=== PATIENT | male | born 1970 | race Asian ===

== ENCOUNTER 2022-11-06 00:09 | Emergency (ER) | payer OTHER, SELFPAY ==
--- NOTE | ~2022-11-06 | US_ITS ---
EXAMINATION: US VENOUS ULTRASOUND WITH DOPPLER LOWER EXTREMITY, BILATERAL CLINICAL INFORMATION: Bilateral lower extremity swelling and pain COMPARISON: None TECHNIQUE: Ultrasound of the deep veins is performed from the hip to the calf with compression sonography and color and pulse Doppler assessment. Spectral analysis with color-flow imaging is performed. FINDINGS: RIGHT: There is normal venous compression and respiratory variation and augmented flow. The visualized common femoral vein, superficial femoral vein, profunda femoral vein, popliteal vein, and the trifurcation region shows no evidence of deep venous thrombosis. There is no significant popliteal fossa cyst. There are multiple 2 cm and less lymph nodes right groin LEFT: There is normal venous compression and respiratory variation and augmented flow. The visualized common femoral vein, superficial femoral vein, profunda femoral vein, popliteal vein, and the trifurcation region shows no evidence of deep venous thrombosis. There is no significant popliteal fossa cyst. There are multiple lymph nodes left groin measuring 2.5 cm. The largest lymph node in maximum length measures 2.5 cm.. US/US venous duplex LE BI IMPRESSION: No DVT demonstrated in the bilateral lower extremity. Bilateral groin lymph nodes. Recommend clinical correlation.
[2022-11-06 00:18] VITALS: BP 132/78; PULSE 80; RESP 20; TEMP 36.9; O2SAT 100; BMI 20.7
[2022-11-06 02:02] LABS: MANUAL DIFF FLAG NO
[2022-11-06 02:03] LABS: Basophils Percent Auto 0.4 % (0-2); Eosinophils Absolute Auto 0.6 X10*3/uL (0.0-0.4); Hematocrit 39.8 % (42.0-52.0); Hemoglobin 12.9 g/dl (14.0-18.0); Imm Gran Abs Auto 0.03 X10*3/uL (0.00-0.03); Imm Gran Pct Auto 0.3 % (0.0-0.4); Lymphocytes Percent Auto 19.2 % (20-40); Mean Corpuscular HGB Conc 32.4 g/dl (31.0-36.0); Mean Corpuscular Hemoglobin 29.5 pg (27.0-33.0); Mean Corpuscular Volume 90.9 fL (80.0-98.0); Mean Platelet Volume 8.9 fL (9.4-12.4); Monocytes Absolute Auto 1.1 X10*3/uL (0.1-1.2); Monocytes Percent Auto 10.4 % (2-11); Neutrophils Absolute Auto 6.7 x10*3/uL (2.0-8.3); Neutrophils Percent Auto 63.7 % (45-73); Platelet Count 226 X10*3/uL (160-400); Red Blood Count 4.38 X10*6/uL (4.60-5.80); Red Cell Distribution Width 13.6 % (11.0-16.0); White Blood Count 10.5 X10*3/uL (4.8-10.8)
[2022-11-06 02:09] LABS: D Dimer High Sensitivity 746 NG/ML
[2022-11-06 02:20] LABS: Anion Gap 10 (12-20); Blood Urea Nitrogen 17 mg/dL (9-16); Calcium 9.1 mg/dL (8.4-10.2); Carbon Dioxide 28 mmol/L (22-29); Chloride 106 mmol/L (96-108); Creatinine Clr Calc Pharmacy 83.6; Estimated Glomerular Filt Rate > 60; Glucose Random 107 mg/dL (60-115); Potassium 4.3 mmol/L (3.3-5.1); Sodium 140 mmol/L (135-145)
--- NOTE | 2022-11-06 03:52 | ED.GENADULT ---
HPI - General Adult General Chief complaint: General Medical Stated complaint: Bilateral leg swelling Time Seen by Provider: 11/06/22 03:38 Source: patient Mode of arrival: ambulatory Limitations: no limitations History of Present Illness HPI narrative: 52-year-old male otherwise healthy presented for evaluation of bilateral lower extremity swelling. About 10 days ago patient was diagnosed with hives that required hydroxyzine and prednisone prescribed by PCP patient is here today for evaluation of bilateral lower extremity swelling, no recent travel, no recent prolonged immobilization. Patient is known to be healthy with no renal or hepatic problems no alcohol drinking issue. Patient is scheduled to see mid level java developer in a few weeks to check on his hives. Related Data Allergies Allergy/AdvReac Type Severity Reaction Status Date / Time No Known Allergies Allergy Verified 11/06/22 00:23 Review of Systems Review of Systems: All other systems are reviewed and are negative Constitutional: Reports as per HPI and Reports no additional constitutional complaints Eyes: Reports as per HPI and Reports no additional eye complaints Reports system reviewed and no additional complaints, except as documented Cardiovascular: Reports as per HPI and Reports no additional cardiovascular complaints Respiratory: Reports as per HPI and Reports no additional respiratory complaints Gastrointestinal: Reports as per HPI and Reports no additional gastrointestinal complaints Genitourinary: Reports no additional female genitourinary complaints Musculoskeletal: Reports no additional musculoskeletal complaints Skin/Breast: Reports system reviewed and no additional complaints, except as docu Psychiatric: Reports no additional psychiatric complaints Endocrine: Reports no additional endocrine complaints Hematologic/Lymphatic: Reports no additional hematologic/lymphatic complaints Allergic/Immunologic: Reports no additional allergic/immunologic complaints Reports system reviewed and no additional complaints, except as documented and Reports Abnormal speech present [facility] Social History Social History Advance Directives: No Advance Directives Information Provided: No Physical Exam ED Vital Signs: Vital Signs - 24 hr 11/06/22 00:18 11/06/22 04:21 Temperature 98.5 F 98.7 F Pulse Rate 80 82 Respiratory Rate 20 18 Blood Pressure 132/78 135/76 Pulse Oximetry 100 99 Oxygen Delivery Method Room Air Room Air BMI result Body Mass Index 20.7 Vital signs have been reviewed as appeared to be correct. Blood pressure normal. Heart rate normal. Respiration rate normal. Temperature normal. Oxygen saturation normal. Appearance: Alert. Oriented X3. No acute distress. Head: Normal external exam. Normocephalic. Atraumatic. No Evans signs noted. No raccoon eyes noted Eyes: PERRLA. EOMI. Conjunctiva and sclera normal. Eyelids normal. ENT: TM's Normal. Pharynx normal. Uvula midline. Moist mucous membranes. No trismus noted. No drooling noted. No muffled voice noted. Neck: Normal inspection. Neck supple. FROM. No adenopathy. Thyroid Normal. No meningeal signs. No neck mass noted. CVS: Normal heart rate and rhythm. Heart sound normal. No murmurs noted. Pulses normal throughout. Respiratory: No respiratory distress. Painless inspiration. Breath sounds normal. No wheezes/rales/rhonchi noted. Chest nontender. No accessory muscle usage noted or decreased air movement noted. Abdomen: Soft and nontender. Bowel sounds normal in all 4 quadrants. No distention noted. No organomegaly noted. No visible injury noted. Back: No CVA tenderness. Full range of motion noted. Skin: Skin warm and dry. Normal skin color. Normal skin turgor. No rashes/lesions/lacerations noted. Extremities: +2 lower extremity edema. Extremities exhibit normal range of motion. Extremities nontender. Neuro: Oriented X 3. Cranial nerve exam: II-XII are grossly intact No motor deficit. No sensory deficit. Reflexes normal. Course Course Course Narrative: 52-year-old male otherwise healthy came in for evaluation of bilateral lower extremity swelling, elevated D-dimer, await for bilateral lower extremities ultrasound rule out DVT the case was signed out to Dr. Rao to follow-up on ultrasound and dispo accordingly. Medical Decision Making Differential Diagnosis Differential Diagnoses: The differential diagnosis associated with the presentation includes (Liver disease, renal disease, DVT, medication side effect.) Lab Data MDM Lab Attestation statement: I reviewed the patient's lab results. Result Diagrams: 11/06/22 01:56 11/06/22 01:56 Labs: Lab Results 11/06/22 11/06/22 11/06/22 Range/Units 01:56 01:56 01:56 WBC 10.5 (4.8-10.8) X10*3/uL RBC 4.38 L (4.60-5.80) X10*6/uL Hgb 12.9 L (14.0-18.0) g/dl Hct 39.8 L (42.0-52.0) % MCV 90.9 (80.0-98.0) fL MCH 29.5 (27.0-33.0) pg MCHC 32.4 (31.0-36.0) g/dl RDW 13.6 (11.0-16.0) % Plt Count 226 (160-400) X10*3/uL MPV 8.9 L (9.4-12.4) fL Immature Gran % (Auto) 0.3 (0.0-0.4) % Neut % (Auto) 63.7 (45-73) % Lymph % (Auto) 19.2 L (20-40) % Mesa % (Auto) 10.4 (2-11) % Eos % (Auto) 6.0 H (0-4) % Baso % (Auto) 0.4 (0-2) % Lymph # (Auto) 2.0 (1.2-4.9) X10*3/uL Mesa # (Auto) 1.1 (0.1-1.2) X10*3/uL Eos # (Auto) 0.6 H (0.0-0.4) X10*3/uL Baso # (Auto) 0.0 (0.0-0.2) X10*3/uL Abs Immat Gran (auto) 0.03 (0.00-0.03) X10*3/uL Absolute Neuts (auto) 6.7 (2.0-8.3) x10*3/uL Absolute Nucleated RBC 0.000 (0.0-0.012) X10*3/uL Nucleated RBC % (auto) 0.0 (0.0-0.2) /100WBC D-Dimer High Sensitivty 746 NG/ML Sodium 140 (135-145) mmol/L Potassium 4.3 (3.3-5.1) mmol/L Chloride 106 (96-108) mmol/L Carbon Dioxide 28 (22-29) mmol/L Anion Gap 10 L (12-20) BUN 17 H (9-16) mg/dL Creatinine 0.95 (0.5-1.4) mg/dL Estim Creat Clear Calc 83.6 Estimated GFR > 60 Random Glucose 107 (60-115) mg/dL Calcium 9.1 (8.4-10.2) mg/dL Total Bilirubin 0.5 (0.0-1.0) mg/dL Direct Bilirubin 0.2 (0.0-0.5) mg/dL AST 27 (5-37) U/L ALT 35 (0-40) U/L Alkaline Phosphatase 64 (39-117) U/L B-Natriuretic Peptide (<100) pg/mL Total Protein 6.8 (6.5-8.0) g/dL Albumin 3.9 (3.5-5.0) g/dL 11/06/22 Range/Units 01:56 WBC (4.8-10.8) X10*3/uL RBC (4.60-5.80) X10*6/uL Hgb (14.0-18.0) g/dl Hct (42.0-52.0) % MCV (80.0-98.0) fL MCH (27.0-33.0) pg MCHC (31.0-36.0) g/dl RDW (11.0-16.0) % Plt Count (160-400) X10*3/uL MPV (9.4-12.4) fL Immature Gran % (Auto) (0.0-0.4) % Neut % (Auto) (45-73) % Lymph % (Auto) (20-40) % Mesa % (Auto) (2-11) % Eos % (Auto) (0-4) % Baso % (Auto) (0-2) % Lymph # (Auto) (1.2-4.9) X10*3/uL Mesa # (Auto) (0.1-1.2) X10*3/uL Eos # (Auto) (0.0-0.4) X10*3/uL Baso # (Auto) (0.0-0.2) X10*3/uL Abs Immat Gran (auto) (0.00-0.03) X10*3/uL Absolute Neuts (auto) (2.0-8.3) x10*3/uL Absolute Nucleated RBC (0.0-0.012) X10*3/uL Nucleated RBC % (auto) (0.0-0.2) /100WBC D-Dimer High Sensitivty NG/ML Sodium (135-145) mmol/L Potassium (3.3-5.1) mmol/L Chloride (96-108) mmol/L Carbon Dioxide (22-29) mmol/L Anion Gap (12-20) BUN (9-16) mg/dL Creatinine (0.5-1.4) mg/dL Estim Creat Clear Calc Estimated GFR Random Glucose (60-115) mg/dL Calcium (8.4-10.2) mg/dL Total Bilirubin (0.0-1.0) mg/dL Direct Bilirubin (0.0-0.5) mg/dL AST (5-37) U/L ALT (0-40) U/L Alkaline Phosphatase (39-117) U/L B-Natriuretic Peptide 29 (<100) pg/mL Total Protein (6.5-8.0) g/dL Albumin (3.5-5.0) g/dL Discharge Plan Discharge Clinical Impression: Bilateral leg edema Patient Disposition: Still a Patient
[2022-11-06 03:58] LABS: Alanine Aminotransferase 35 U/L (0-40); Albumin Level 3.9 g/dL (3.5-5.0); Alkaline Phosphatase 64 U/L (39-117); Aspartate Amino Transferase 27 U/L (5-37); Bilirubin Direct 0.2 mg/dL (0.0-0.5); Bilirubin Total 0.5 mg/dL (0.0-1.0); Total Protein 6.8 g/dL (6.5-8.0)
[2022-11-06 04:08] LABS: B Type Natriuretic Peptide 29 pg/mL (<100)
[2022-11-06 04:21] VITALS: BP 135/76; PULSE 82; RESP 18; TEMP 37.1; O2SAT 99
--- NOTE | 2022-11-06 04:39 | PC.NURSE ---
Pt. sleeping, under no apparent distress. Respirations are even and unlabored. Will continue to monitor.
[2022-11-06 06:07] VITALS: BP 132/75; PULSE 80; RESP 18; O2SAT 100
[2022-11-06 07:38] VITALS: BP 119/65; PULSE 87; RESP 16; TEMP 36.7; O2SAT 97
--- NOTE | 2022-11-06 09:10 | PC.NURSE ---
Patient resting comfortably no distress noted edema non pitting to BLE with rash peeling skin noted. AOx 4 mentating speaks in clear voice with no slurring of words awaiting disposition will CTM
== END 2022-11-06 10:17 | disposition home or self-care (01) ==
PROVIDERS: Emergency Medicine; Emergency Provider Student in an Organized Health Care Education/Training Program
DX: R60.0 Localized edema (principal); R06.02 Shortness of breath; Z79.899 Other long term (current) drug therapy
CPT/HCPCS: 36415; 80048; 80076; 83880; 85025; 85379; 93970; 99283; 99284

== ENCOUNTER 2024-01-06 09:22 | Emergency (ER) | payer OTHER, SELFPAY ==
--- NOTE | ~2024-01-06 | XR_ITS ---
EXAMINATION: 1. RADIOGRAPHS RIGHT ANKLE 2. RADIOGRAPHS RIGHT FOOT 3. RADIOGRAPHS LEFT FOOT CLINICAL INFORMATION: Bilateral foot pain COMPARISON: None available TECHNIQUE: 3 views of the right ankle, 3 views of the right foot and 3 views of the left foot were obtained. FINDINGS: Right ankle/foot: Visualized portion of the distal right tibia and fibula demonstrate no fracture. Ankle mortise is maintained. Mild soft tissue swelling along the medial ankle. No gross ankle joint effusion. Bones of the midfoot are well aligned. No tarsal, metatarsal or phalangeal fracture. 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 Minimal degenerative changes of the first MTP joint and scattered IP joints. No localized soft tissue swelling of the right foot. Left foot: Bones of the midfoot are well aligned. No tarsal, metatarsal or phalangeal fracture. Minimal degenerative changes of the first MTP joint and scattered IP joints. No localized soft tissue swelling. No radiopaque foreign body. XR/XR foot RT 2V IMPRESSION: 1. Minimal degenerative changes of both feet. No fracture. 2. Mild soft tissue swelling along the medial aspect of the right ankle.
--- NOTE | ~2024-01-06 | XR_ITS ---
EXAMINATION: 1. RADIOGRAPHS RIGHT ANKLE 2. RADIOGRAPHS RIGHT FOOT 3. RADIOGRAPHS LEFT FOOT CLINICAL INFORMATION: Bilateral foot pain COMPARISON: None available TECHNIQUE: 3 views of the right ankle, 3 views of the right foot and 3 views of the left foot were obtained. FINDINGS: Right ankle/foot: Visualized portion of the distal right tibia and fibula demonstrate no fracture. Ankle mortise is maintained. Mild soft tissue swelling along the medial ankle. No gross ankle joint effusion. Bones of the midfoot are well aligned. No tarsal, metatarsal or phalangeal fracture. 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 Minimal degenerative changes of the first MTP joint and scattered IP joints. No localized soft tissue swelling of the right foot. Left foot: Bones of the midfoot are well aligned. No tarsal, metatarsal or phalangeal fracture. Minimal degenerative changes of the first MTP joint and scattered IP joints. No localized soft tissue swelling. No radiopaque foreign body. XR/XR ankle RT 2V IMPRESSION: 1. Minimal degenerative changes of both feet. No fracture. 2. Mild soft tissue swelling along the medial aspect of the right ankle.
--- NOTE | ~2024-01-06 | XR_ITS ---
EXAMINATION: 1. RADIOGRAPHS RIGHT ANKLE 2. RADIOGRAPHS RIGHT FOOT 3. RADIOGRAPHS LEFT FOOT CLINICAL INFORMATION: Bilateral foot pain COMPARISON: None available TECHNIQUE: 3 views of the right ankle, 3 views of the right foot and 3 views of the left foot were obtained. FINDINGS: Right ankle/foot: Visualized portion of the distal right tibia and fibula demonstrate no fracture. Ankle mortise is maintained. Mild soft tissue swelling along the medial ankle. No gross ankle joint effusion. Bones of the midfoot are well aligned. No tarsal, metatarsal or phalangeal fracture. 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 Minimal degenerative changes of the first MTP joint and scattered IP joints. No localized soft tissue swelling of the right foot. Left foot: Bones of the midfoot are well aligned. No tarsal, metatarsal or phalangeal fracture. Minimal degenerative changes of the first MTP joint and scattered IP joints. No localized soft tissue swelling. No radiopaque foreign body. XR/XR foot LT 2V IMPRESSION: 1. Minimal degenerative changes of both feet. No fracture. 2. Mild soft tissue swelling along the medial aspect of the right ankle.
[2024-01-06 10:50] VITALS: BP 146/85; PULSE 67; RESP 16; TEMP 36.8; O2SAT 99; BMI 22.0
--- NOTE | 2024-01-06 10:59 | ED_ITS ---
HPI - General Adult General Chief complaint: General Medical Stated complaint: Pain in feet Time Seen by Provider: 01/06/24 11:05 Source: patient Mode of arrival: ambulatory Limitations: no limitations History of Present Illness HPI narrative: 53-year-old male presents with complaints of pain to the bottom of bilateral feet ongoing for the past 6 months worsening, patient reports pain is worse with ambulation and weight-bearing better at rest. Movement also makes it worse. Non weight-bearing makes it better. Patient has been trying to get in with his primary care provider however has not been able to. He has been ambulatory however with discomfort. Denies fevers, chills, numbness, tingling, trauma, chest pain, shortness of breath, leg swelling, nausea, vomiting, abdominal pain. Patient has been trying ice, [id number] meds with little to no relief. Has not seen ortho Related Data Previous Rx's Medication Instructions Recorded naproxen 500 mg tablet 500 mg PO BID #14 tabs 01/06/24 prednisone 50 mg tablet 50 mg PO DAILY 5 days #5 tabs 01/06/24 Allergies Allergy/AdvReac Type Severity Reaction Status Date / Time No Known Allergies Allergy Verified 01/06/24 10:50 Review of Systems Review of Systems: Constitutional : No Weight loss, No Fever, No Chills, No Fatigue, No Malaise ENT/Mouth : No sore throat, No Rhinorrhea Eyes: No Eye Pain, No Swelling, No Redness Cardiovascular : No Chest Pain, No SOB, No Dyspnea on Exertion, No Orthopnea, No Edema, No Palpitations Respiratory : No Cough, No Sputum, No Wheezing Gastrointestinal : No Nausea, No Vomiting, No Diarrhea, No Constipation, No abdominal Pain, No Hematochezia, No Melena Genitourinary : No Dysuria, No Urinary Frequency, No Hematuria, Musculoskeletal : + joint pain, No Myalgias, No Joint Swelling Skin : No Skin Lesions, No rash Neuro : No Weakness, No Numbness, No Dizziness, No Headache Psych : No Anxiety/Panic, No Depression All other systems reviewed and are negative Yes all other systems are reviewed and are negative [facility] Past Medical History Attestation statement: The following information was validated with the patient. Source: old records reviewed and nursing notes reviewed Physical Exam ED Vital Signs: Vital Signs - 24 hr 01/06/24 10:50 Temperature 98.2 F Pulse Rate 67 Respiratory Rate 16 Blood Pressure 146/85 H Pulse Oximetry 99 Oxygen Delivery Method Room Air BMI result Body Mass Index 22.0 VSS Appearance: Alert.? Oriented X3.? No acute distress.? Head: Normocephalic, atraumatic, no step-offs or deformities Eyes: Pupils equal, round and reactive to light.? CVS: Normal heart rate and rhythm.? Pulses normal.? Respiratory: No respiratory distress.? Breath sounds normal.? Skin: Skin warm and dry.? Normal skin color.? Normal skin turgor.? Extremities: No lower extremity edema.? No calf ttp. Global weakness + slow steady gait, patient has pain with palpation of right medial ankle, no overlying skin changes, step-offs or deformities. 2+ dorsalis pedis, anterior tibialis, posterior tibialis pulses equal bilateral. 2+ popliteal pulses. Normal sensation distally. There is tenderness to palpation to bilateral lower extremities plantar aspect of foot throughout worse in the arch. Back: No midline tenderness, no C-spine tenderness, full range of motion, no CVA tenderness bilaterally Neuro: Oriented X 3.? No motor deficit.? No sensory deficit. CN 2-12 intact Course Course Course Narrative: This is a rapid medical exam: Additional HPI, ROS, PE not included below will be deferred to primary provider. Patient is a 53-year-old male presenting to the ED with complaint of bilateral plantar foot pain progressively worsening for the past 2 months, worse with ambulation. Also complaining of right medial ankle pain. Medical Decision Making Medical Decision Making MDM Narrative: 53-year-old male presents with bilateral plantar foot pain that has been ongoing for the past 6 months Physical exam with pain with palpation to the entire plantar aspect of bilateral feet worse around the arch and to the right medial ankle. Palpable pulses. History and physical exam concerning for plantar fasciitis versus neuropathy versus sprain or strain versus osteoarthritis. Unlikely acute venous thromboembolism, arterial occlusion, neurovascular compromise, threat to limb. Unlikely fracture dislocations. Plan at this time will obtain imaging of bilateral feet and ankle. Differential Diagnosis Differential Diagnoses: The differential diagnosis associated with the presentation includes History and physical exam concerning for plantar fasciitis versus neuropathy versus sprain or strain versus osteoarthritis. Unlikely acute venous thromboembolism, arterial occlusion, neurovascular compromise, threat to limb. Unlikely fracture dislocations. Admission/Observation Consideration of admission/observation: Escalation of care including admission/observation considered Unlikely Independent Interpretation I performed an independent interpretation of an: Plain X-Ray Radiology Impression Discussion of test interpretation with radiology: I have reviewed the radiologist's reading. Prescription Management I considered prescription management with: Pain Medication Discharge Plan Discharge Clinical Impression: Bilateral foot pain Patient Disposition: Home, Self-Care Instructions: Arthralgia (ED) Additional Instructions: Take your medications as prescribed. If you were prescribed antibiotics today, it is important that you take your medication to their entirety, do not skip any doses, do not finish them early. Follow-up with your primary care provider this week. Return to the emergency department with new or worsening symptoms. Such as fevers, chills, chest pain, shortness of breath, nausea, vomiting, dizziness, headache, vision changes, lethargy In case of emergency call 911 Follow-up with the orthopedic team. Prescriptions: New prednisone 50 mg tablet 50 mg PO DAILY 5 Days Qty: 5 0RF naproxen 500 mg tablet 500 mg PO BID Qty: 14 0RF Referrals: [facility] [place] [facility] [Provider Group] - 2 days Physician,Unknown J [Primary Care Provider] - 2 days Stand Alone Forms: Work/School Release
== END 2024-01-06 11:45 | disposition home or self-care (01) ==
PROVIDERS: Emergency Provider Emergency Medicine
DX: M79.671 Pain in right foot (principal); M79.672 Pain in left foot; M25.571 Pain in right ankle and joints of right foot
CPT/HCPCS: 73600; 73620; 99283